=== PATIENT | male | born 1995 | race Caucasian/White ===

== ENCOUNTER 2016-09-25 09:13 | Emergency (ER) | payer BC, OTHER ==
--- NOTE | ~2016-09-25 | CR63 ---
[facility] A Service of [facility] RADIOLOGY TEXT RESULTS PATIENT: LAZ MONSIVAIS LOCATION: [facility] : [birth year] UNIT #: [id number] AGE: [address]: Vasu Gerber SEX: M ORDER DR: [id number] [facility] [address] [place], [place] [address] [id number] MR#: [id number] Acc #: [id number] NAME: LAZ MONSIVAIS : 1995 SEX: M STUDY DATE/TIME: 09/25/2016 8:31 UNIT: [facility] ROOM: STUDY DESCRIPTION: CR Chest 2 View Attending Physician: Vasu Gerber Ordering Physician: Ed Doctor [id number] [facility] Primary Care Physician: Primary Care Physician No MEDICAL IMAGING REPORT This report is preliminary unless electronic signature is present EXAM Chest x-ray, 09/25 INDICATIONS Cough, chills, fever and congestion for 4 days. FINDINGS PA and lateral examination of the chest upright shows a good expansion of the parenchyma with a normal distribution of the pulmonary vascularity. There is no indication of congestion, effusion, infiltrate, tumor, or nodular density. The pleural reflections and diaphragmatic contours are normal. The cardiac silhouette and mediastinal anatomy is within normal limits. IMPRESSION Normal chest. Dictated by... Tesfaye Brooks Jr., M.D. THIS IS AN ELECTRONICALLY VERIFIED REPORT Tesfaye Brooks Jr., M.D. at 09/25/2016 3:53 PM SHERRIE/mau TD: 09/25/2016 09:28 JOB #: [id number] MEDICAL IMAGING REPORT Page 1 of 1 COPY
[2016-09-25 08:07] LABS: INFLUENZA A NEG (NEG); INFLUENZA B NEG (NEG)
== END 2016-09-25 10:07 | disposition home or self-care (01) ==
LOC: CED 09:13
DX: J06.9 Acute upper respiratory infection, unspecified (principal); F17.210 Nicotine dependence, cigarettes, uncomplicated
CPT/HCPCS: 71020; 87651; 87804; 94640; 99283